=== PATIENT | male | born 1970 | race Caucasian/White ===

== ENCOUNTER 2016-06-25 18:42 | Emergency (ER) | payer OTHER ==
[~2016-06-25] VITALS: Ht 180.3 cm; Wt 90.7 kg
[2016-06-25] MEDS ORDERED: LISINOPRIL-HCT1 EAC1 PO (18:56)
--- NOTE | 2016-06-25 19:38 | ED SYNCOPE COMPLAINT ---
History of Present Illness General Chief Complaint: Syncope and Near-Syncope Stated Complaint: BIBA FOR SYNCOPE EPISODE Source: patient Exam Limitations: no limitations Vital Signs & Intake/Output Vital Signs & Intake/Output Vital Signs Date Time Temp Pulse Resp B/P Pulse O2 O2 Flow FiO2 Ox Delivery Rate 06/26 0020 97.5 84 18 120/76 97 Room Air 06/25 2247 97.4 80 18 118/72 96 Room Air 06/25 1906 Room Air Room Air 06/25 1842 96.4 91 18 122/80 97 Room Air ED Intake and Output 06/26 0000 06/25 1200 Intake Total Output Total Balance Patient 200 lb Weight Allergies Coded Allergies: venom-honey bee (Severe, ANAPHALACTIC 06/25/16) Penicillins (Mild, RASH 06/25/16) Reconcile Medications Lisinopril/Hydrochlorothiazide (Lisinopril-Hctz 20-25 MG Tab) 20 MG-25 MG TABLET 1 TAB PO DAILY BP (Reported) Triage Note: PT BIBA FROM HOME TO [facility] RM 10 S/P SYNCOPAL EPISODE. PER PT WAS SITTING AT TABLE EATING [employer]INNER LAUGHING AND ALL OF A SUDDEN HE TURNED RED, WENT TO STAND UP AND PASSED OUT FALLING TO THE SIDE. HAS ABRASION TO R FOREHEAD WHICH THINKS HE GOT FROM HITTING HEAD ON CHAIR. STATES SHE CALLED TO HER SON TO CALL 911 WHILE SHE WAS TRYING TO GET HIM UP AND BEFORE SON COULD EVEN COMPLETE 911 CALL PATIENT WAS ALERT AND SPEAKING. THOUGHT INITIALLY THAT MAYBE HE HAD CHOKED ON HIS FOOD. PT DOES NOT RECALL EVENT. ADMITS TO HAVING HAD A FEW BEERS TODAY WHILE WATCHING "THE GAME, MAYBE 4-5". STATES HE HAD BEEN EATING TODAY AND DRINKING (OTHER FLUIDS BESIDES ALCOHOL) TODAY. DENIES ANY PAIN. DOES NOT RECALL FEELING DIZZY BEFORE EVENT AND DENIES FEELING DIZZY AFTERWARDS. PT GOT OWN SELF UP OFF THE GROUND BEFORE EMS ARRIVAL. REPORTS ONLY HX OF SYNCOPAL EPISODE IN THE PAST WHEN HE HAD AN ANAPHALACTIC REACTION TO A BEE STING. F/S 107 FOR EMS, NSR 80'S FOR EMS, 90'S ON OUR . AWAITING PROVIDER EVAL. Triage Nurses Notes Reviewed? yes Timing: single episode today Precipitating Factors: patient was drinking, eating steak, and laughing. Context: patient was drinking alcohol, eating a steak, and laughing Episode Description: See below Loss of Consciousness: brief (seconds) Associated Symptoms: patient was laughing HPI: 46-year-old gentleman presents after a syncopal episode. He states that he was at a restaurant. He ate a piece of steak, and was laughing. It also been drinking several beers today. Per his , he he went to stand up and suddenly turned blue and passed out for several moments. He does not recall the episode. He states he did hit his head when he fell. He does not recall palpitations chest pain shortness of breath. He presently feels well and has no concerns. Past History Travel History [place]ed to [place] past [place] No Medical History Any Pertinent Medical History? see below for history Neurological: NONE EENT: NONE Cardiovascular: NONE Respiratory: NONE Gastrointestinal: NONE Hepatic: NONE Renal: NONE Musculoskeletal: NONE Psychiatric: NONE Endocrine: NONE Blood Disorders: NONE Cancer(s): NONE CORPORATE TRAVEL COORDINATOR/Reproductive: NONE Surgical History Surgical History: none Psychosocial History What is your primary language Frisian Tobacco Use: Current Daily Use Daily Tobacco Use Amount/Type: => 5 Cigarettes daily ETOH Use: occasional use Illicit Drug Use: denies illicit drug use Family History Hx Contributory? No Review of Systems Review of Systems Constitutional: Reports: no symptoms. EENTM: Reports: no symptoms. Respiratory: Reports: no symptoms. Cardiovascular: Reports: no symptoms. GI: Reports: no symptoms. Genitourinary: Reports: no symptoms. Musculoskeletal: Reports: no symptoms. Skin: Reports: no symptoms. Neurological/Psychological: Reports: no symptoms. All Other Systems: Reviewed and Negative Physical Exam Physical Exam General Appearance: well developed/nourished, no apparent distress, alert, comfortable Head: normal appearance, mild swelling and right forehead Eyes: Bilateral: normal appearance, PERRL, EOMI. Ears, Nose, Throat: normal pharynx, normal ENT inspection Neck: normal inspection, supple, full range of motion Respiratory: normal breath sounds, chest non-tender, no respiratory distress, quiet respiration, lungs clear Cardiovascular: regular rate/rhythm Gastrointestinal: normal bowel sounds, soft, non-tender, no organomegaly Extremities: normal inspection, normal capillary refill, normal range of motion, no edema Psychiatric: awake, alert, oriented x 3 Cranial Nerves: normal hearing, normal speech, PERRL Coordination/Gait: normal finger to nose, normal gait Motor/Sensory: no motor/sensory deficits Reflexes: 1+: bicep (R), bicep (L). Skin: intact, normal color, warm/dry Core Measures ACS in differential dx? No CVA/TIA Diagnosis: No Severe Sepsis Present: No Septic Shock Present: No Progress Differential Diagnosis: vasovagal versus syncope. Versus alcohol intoxication versus other. Plan of Care: Orders Procedure Date/time Status TROPONIN LEVEL 06/26 2239 Complete EKG 06/26 2239 Active URINE DRUG SCREEN FOR ER ONLY 06/25 1924 Complete URINALYSIS 06/25 1924 Complete TROPONIN LEVEL 06/25 1916 Complete ETHANOL 06/25 1916 Complete D-DIMER 06/25 1916 Complete COMPREHENSIVE METABOLIC PANEL 06/25 1916 Complete CBC WITHOUT DIFFERENTIAL 06/25 1916 Complete EKG 06/25 1909 Active Laboratory Tests 06/25/162239: Troponin I < 0.01 06/25/161939: Urine Opiates Screen < 100.00, Methadone Screen < 40, Barbiturate Screen < 60, Ur Phencyclidine Scrn < 6.00, Amphetamines Screen < 100, U Benzodiazepines Scrn < 85, Urine Cocaine Screen < 50, Urine Cannabis Screen < 5.00, Urinalysis LIGHT H, Urine Color YEL, Urine Clarity CLEAR, Urine pH 6.0, Ur Specific Ione <= 1.005, Urine Protein NEG, Urine Ketones NEG, Urine Nitrite NEG, Urine Bilirubin NEG, Urine Urobilinogen 0.2, Ur Leukocyte Esterase NEG, Ur Microscopic SEDIMENT EXAMINED, Urine Hemoglobin SMALL H, Urine Glucose NEG 06/25/161920: Anion Gap 15, Estimated GFR > 60, BUN/Creatinine Ratio 12.9, Glucose 86, Calcium 9.1, Total Bilirubin 0.5, AST 32, ALT 57, Alkaline Phosphatase 66, Troponin I < 0.01, Total Protein 7.3, Albumin 4.3, Globulin 3.0, Albumin/Globulin Ratio 1.4, D-Dimer 205, CBC w Diff NO MAN DIFF REQ, RBC 4.79, MCV 96.7 H, MCH 32.7 H, RDW 13.3, MPV 8.7, Gran % 61.9, Lymphocytes % 28.1, Monocytes % 6.2, Eosinophils % 3.3, Basophils % 0.5, Absolute Granulocytes 6.0, Absolute Lymphocytes 2.7, Absolute Monocytes 0.6, Absolute Eosinophils 0.3, Absolute Basophils 0.1, PUBS MCHC 33.8, Serum Alcohol 176.0 Diagnostic Imaging: Viewed by Me: Radiology Read, CT Scan. Discussed w/RAD: Radiology Read, CT Scan. Radiology Impression: head ct.... no acute dz, full report below. CXR Impression: no acute abnormality, no infiltrates, normal size heart, normal mediastinum Initial ED EKG: normal axis, normal intervals, normal p-waves, normal QRS complex, normal sinus rhythm Repeat EKG: unchanged Comments: PATIENT: DEONTE RHODES III PRESENT AGE: 46 PATIENT ACCOUNT NO: [id number] : 69 LOCATION: [facility] ORDERING PHYSICIAN: PARAS QUIJANO MD SERVICE DATE: 06/25/16 EXAM TYPE: CAT - CT HEAD WO IV CONTRAST EXAMINATION: CT HEAD WITHOUT CONTRAST CLINICAL INFORMATION: Syncope. Head injury. COMPARISON: None. TECHNIQUE: Contiguous axial imaging was performed from the skull base to vertex without intravenous administration of contrast. DLP: 600 mGy-cm FINDINGS: No acute intracranial abnormality. No acute intracranial hemorrhage, mass or mass effect or abnormal extra-axial fluid collections. The density within the dural venous sinuses is within normal limits. The ventricles are normal in size, without hydrocephalus. There are no focal areas of hypoattenuation within a vascular distribution to suggest acute transcortical ischemia. The basilar cisterns are patent. No acute calvarial abnormality is identified. Soft tissues appear unremarkable. The imaged paranasal sinuses and mastoid air cells are well aerated. IMPRESSION: No acute intracranial abnormality. DICTATED BY: EMILIA HUANG MD DATE/TIME DICTATED:06/25/162036 TROUBLE LINEMAN:JORGE DATE/TIME TRANSCRIBED:06/25/162036 CONFIDENTIAL, DO NOT COPY WITHOUT APPROPRIATE AUTHORIZATION. <Electronically signed in Other Vendor System> SIGNED BY: EMILIA HUANG MD 06/25/162050 Departure Departure Disposition: HOME OR SELF CARE Condition: Stable Clinical Impression Primary Impression: Syncope Secondary Impressions: Alcohol intoxication, Head injury Referrals: BRANDYN LAWTON,CHRISTO Ibarra (PCP/Family) Departure Forms: Customer Survey General Discharge Information Comments discussed with dr. lockhart who will see pt in follow up. pt with trop neg x 2, ekg benign x 2.
[2016-06-25 19:42] LABS: ABSOLUTE BASOPHIL COUNT 0.1 /CUMM (0.0-0.2); ABSOLUTE EOSINOPHIL COUNT 0.3 /CUMM (0.0-0.7); ABSOLUTE LYMPH COUNT 2.7 /CUMM (1.2-3.4); ABSOLUTE MONOCYTE COUNT 0.6 /CUMM (0.10-0.60); BASOPHIL % 0.5 % (0.0-2.0); EOSINOPHIL % 3.3 % (0-5); GRANULOCYTE % 61.9 % (42.2-75.2); HEMATOCRIT 46.3 % (42-52); MEAN CORPUSCULAR HGB 32.7 PG (27.0-31.0); MEAN CORPUSCULAR HGB CONC 33.8 G/DL (33.0-37.0); MEAN CORPUSCULAR VOLUME 96.7 FL (80.0-94.0); MEAN PLATELET VOLUME 8.7 FL (7.4-10.4); PLATELET COUNT 252 /CUMM (130-400); RBC DISTRIBUTION WIDTH 13.3 % (11.5-14.5); RED BLOOD CELL CT 4.79 /CUMM (4.70-6.10); WHITE BLOOD CELL COUNT 9.7 /CUMM (4.8-10.8)
--- NOTE | 2016-06-25 20:10 | RADIOLOGY REPORT ---
EXAMINATION: XR PORTABLE CHEST CLINICAL INFORMATION: Syncope. COMPARISON: None. TECHNIQUE: Portable AP view of the chest was obtained. FINDINGS: The lungs are well-expanded and clear without focal airspace consolidation. No pleural effusions or pneumothoraces are identified. Cardiomediastinal contours are within normal limits. Soft tissues are unremarkable. No acute osseous abnormality is identified. IMPRESSION: No acute pulmonary process.
--- NOTE | 2016-06-25 20:51 | CT SCAN REPORT ---
EXAMINATION: CT HEAD WITHOUT CONTRAST CLINICAL INFORMATION: Syncope. Head injury. COMPARISON: None. TECHNIQUE: Contiguous axial imaging was performed from the skull base to vertex without intravenous administration of contrast. DLP: 600 mGy-cm FINDINGS: No acute intracranial abnormality. No acute intracranial hemorrhage, mass or mass effect or abnormal extra-axial fluid collections. The density within the dural venous sinuses is within normal limits. The ventricles are normal in size, without hydrocephalus. There are no focal areas of hypoattenuation within a vascular distribution to suggest acute transcortical ischemia. The basilar cisterns are patent. No acute calvarial abnormality is identified. Soft tissues appear unremarkable. The imaged paranasal sinuses and mastoid air cells are well aerated. IMPRESSION: No acute intracranial abnormality.
[2016-06-26 00:20] VITALS: BP 120/76
== END 2016-06-26 00:20 ==
LOC: ERH 18:42
PROVIDERS: Pediatrics
DX: R55 Syncope and collapse (principal); S09.90XA Unspecified injury of head, initial encounter; F10.129 Alcohol abuse with intoxication, unspecified; W19.XXXA Unspecified fall, initial encounter
CPT/HCPCS: 80307; 81001; 93005; 93010; G0480